=== PATIENT | female | born 2000 | race Caucasian/White ===

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

== ENCOUNTER → 2022-08-17 | Outpatient (CLI) | payer OTHER ==
[2022-08-17 17:37] LABS: PROGESTERONE 0.44 NG/ML; PROLACTIN 8.6 NG/ML
== END ==
LOC: M PLALAB 13:21
PROVIDERS: ATTEND Obstetrics & Gynecology
DX: N91.2 Amenorrhea, unspecified (principal)

== ENCOUNTER → 2023-01-24 | Outpatient (REF) ==
[2023-01-24 14:01] LABS: COLLAGEN EPINEPHRINE 107 SECONDS (74-162)
== END ==
LOC: M LABCAHC 12:15
PROVIDERS: ATTEND Obstetrics & Gynecology Obstetrics
DX: Z79.899 Other long term (current) drug therapy (principal)

== ENCOUNTER → 2023-02-10 | Outpatient (CLI) | payer OTHER | LOC: M RAD 07:50 | DX: K82.4 Cholesterolosis of gallbladder (principal) | CPT/HCPCS: 78227; A9537 ==

== ENCOUNTER → 2024-02-04 | Outpatient (REF) | payer OTHER | LOC: M LAB REF 21:41 | PROVIDERS: ATTEND Physician Assistant | DX: B34.9 Viral infection, unspecified (principal) ==

== ENCOUNTER 2024-03-03 11:03 | Day surgery (SDC) | payer OTHER ==
[~2024-03-03] VITALS: Ht 160 cm; Wt 95.3 kg
[~2024-03-03 11:03] MED LIST changes: +AMIT10TA7 PO; +FAMO20TA PO; +METF-838 PO; +NEXI40CA PO; +PANT40TA29 PO; +PREN27TA3 PO; +VITA200032 PO
[2024-03-03] MEDS: NS 1,000 ML IV ONE (11:35)
[2024-03-03] MEDS ORDERED: propofoL 200 MG/20 ML VIAL As Ordered ONE (12:32)
[2024-03-03] MEDS ORDERED: LIDOCAINE 2% 100MG/5ML SDV (FOR ANES.) As Ordered ONE (12:32)
[2024-03-03] MEDS ORDERED: MIDAZOLAM INJ 2MG/2ML VIAL As Ordered ONE (12:33)
[2024-03-03 13:04] VITALS: TEMP 98
[2024-03-03 13:20] VITALS: BP 121/88; O2SAT 98
== END 2024-03-03 13:29 | disposition home or self-care (01) ==
LOC: M OPP 11:03
PROVIDERS: ATTEND Internal Medicine Gastroenterology
DX: K21.01 Gastro-esophageal reflux disease with esophagitis, with bleeding (principal); K64.8 Other hemorrhoids; J45.909 Unspecified asthma, uncomplicated; Z79.899 Other long term (current) drug therapy; Z79.84 Long term (current) use of oral hypoglycemic drugs; F17.290 Nicotine dependence, other tobacco product, uncomplicated
CPT/HCPCS: 45378; 88305; J2250

== ENCOUNTER → 2024-05-12 | Outpatient (CLI) | payer OTHER ==
[2024-05-12 15:16] LABS: URINE PREG TEST NEGATIVE (NEGATIVE)
== END ==
LOC: M LAB 14:26
PROVIDERS: ATTEND Internal Medicine Nephrology
DX: N18.1 Chronic kidney disease, stage 1 (principal)

== ENCOUNTER → 2024-05-23 | Outpatient (CLI) | payer OTHER ==
[~2024-05-23] MED LIST changes: +ISOVUE-370 76% 100ML VIAL As Ordered ONE
== END ==
LOC: M RAD 15:39
PROVIDERS: ATTEND Internal Medicine Nephrology
DX: D41.00 Neoplasm of uncertain behavior of unspecified kidney (principal); K76.0 Fatty (change of) liver, not elsewhere classified
CPT/HCPCS: 74178; Q9967

== ENCOUNTER → 2024-07-11 | Outpatient (REF) | payer OTHER ==
[~2024-07-11] MED LIST changes: -ISOVUE-370 76% 100ML VIAL As Ordered ONE
== END ==
LOC: M LAB REF 11:51
PROVIDERS: ATTEND Nurse Practitioner Family
DX: B96.81 Helicobacter pylori [H. pylori] as the cause of diseases classified elsewhere (principal)